=== PATIENT | female | born 1950 | race Caucasian/White ===

== ENCOUNTER 2023-11-07 11:56 | Outpatient (RCR) | payer MEDICARE, OTHER, SELFPAY | END 2023-11-07 23:59 | disposition home or self-care (01) | LOC: RPT 11:56 | PROVIDERS: ATTENDING PHYSICIAN Psychiatry & Neurology Neurology; FAMILY PHYSICIAN Physical Medicine & Rehabilitation | DX: R26.2 Difficulty in walking, not elsewhere classified (principal); Z73.6 Limitation of activities due to disability; M62.81 Muscle weakness (generalized); R20.2 Paresthesia of skin; R20.0 Anesthesia of skin; M54.9 Dorsalgia, unspecified; Z98.890 Other specified postprocedural states; Z47.89 Encounter for other orthopedic aftercare | CPT/HCPCS: 97112; 97116 ==

== ENCOUNTER 2023-11-30 11:01 | Outpatient (RCR) | payer MEDICARE, OTHER, SELFPAY | END 2023-11-30 23:59 | disposition home or self-care (01) | LOC: RPT 11:01 | PROVIDERS: ATTENDING PHYSICIAN Psychiatry & Neurology Neurology; FAMILY PHYSICIAN Physical Medicine & Rehabilitation | DX: R26.2 Difficulty in walking, not elsewhere classified (principal); Z73.6 Limitation of activities due to disability; M62.81 Muscle weakness (generalized); R20.2 Paresthesia of skin; Z98.890 Other specified postprocedural states; R20.0 Anesthesia of skin; M54.9 Dorsalgia, unspecified; Z47.89 Encounter for other orthopedic aftercare | CPT/HCPCS: 97010; 97112; 97116 ==

== ENCOUNTER 2023-12-13 12:39 | Outpatient (RCR) | payer MEDICARE, OTHER, SELFPAY | END 2023-12-13 23:59 | disposition home or self-care (01) | LOC: RPT 12:39 | PROVIDERS: ATTENDING PHYSICIAN Family Medicine | DX: I89.0 Lymphedema, not elsewhere classified (principal); Z73.6 Limitation of activities due to disability; R26.2 Difficulty in walking, not elsewhere classified | CPT/HCPCS: 97140; 97163 ==

== ENCOUNTER 2023-12-28 09:30 | Outpatient (RCR) | payer MEDICARE, OTHER, SELFPAY | END 2023-12-28 23:59 | disposition home or self-care (01) | LOC: RPT 09:30 | PROVIDERS: ATTENDING PHYSICIAN Psychiatry & Neurology Neurology; FAMILY PHYSICIAN Physical Medicine & Rehabilitation | DX: R26.2 Difficulty in walking, not elsewhere classified (principal); Z73.6 Limitation of activities due to disability; M62.81 Muscle weakness (generalized); R20.2 Paresthesia of skin; R20.0 Anesthesia of skin; M54.9 Dorsalgia, unspecified; Z98.890 Other specified postprocedural states | CPT/HCPCS: 97110; 97112; 97116 ==

== ENCOUNTER 2024-01-10 10:48 | Outpatient (RCR) | payer MEDICARE, OTHER, SELFPAY | END 2024-01-10 23:59 | disposition home or self-care (01) | LOC: RPT 10:48 | PROVIDERS: ATTENDING PHYSICIAN Family Medicine | DX: I89.0 Lymphedema, not elsewhere classified (principal); Z73.6 Limitation of activities due to disability; R26.2 Difficulty in walking, not elsewhere classified; Z98.890 Other specified postprocedural states | CPT/HCPCS: 97140 ==

== ENCOUNTER 2024-02-09 11:32 | Outpatient (RCR) | payer MEDICARE, OTHER, SELFPAY | END 2024-02-09 23:59 | disposition home or self-care (01) | LOC: RPT 11:32 | PROVIDERS: ATTENDING PHYSICIAN Family Medicine | DX: I89.0 Lymphedema, not elsewhere classified (principal); Z73.6 Limitation of activities due to disability; R26.2 Difficulty in walking, not elsewhere classified | CPT/HCPCS: 97140 ==

== ENCOUNTER 2024-03-12 10:54 | Outpatient (RCR) | payer MEDICARE, OTHER, SELFPAY | END 2024-03-12 23:59 | disposition home or self-care (01) | LOC: RPT 10:54 | PROVIDERS: ATTENDING PHYSICIAN Family Medicine | DX: I89.0 Lymphedema, not elsewhere classified (principal); Z73.6 Limitation of activities due to disability; R26.2 Difficulty in walking, not elsewhere classified | CPT/HCPCS: 97140 ==

== ENCOUNTER 2024-03-26 10:48 | Outpatient (RCR) | payer MEDICARE, OTHER, SELFPAY | END 2024-03-26 13:55 | disposition home or self-care (01) | LOC: RPT 10:48 | PROVIDERS: ATTENDING PHYSICIAN Family Medicine | DX: I89.0 Lymphedema, not elsewhere classified (principal); Z73.6 Limitation of activities due to disability | CPT/HCPCS: 97140; 97535 ==

== ENCOUNTER 2024-04-11 08:32 | Outpatient (RCR) | payer MEDICARE, OTHER, SELFPAY | END 2024-04-11 23:59 | disposition home or self-care (01) | LOC: RPT 08:32 | PROVIDERS: ATTENDING PHYSICIAN Psychiatry & Neurology Neurology; FAMILY PHYSICIAN Family Medicine | DX: R26.89 Other abnormalities of gait and mobility (principal); I77.0 Arteriovenous fistula, acquired; Z73.6 Limitation of activities due to disability | CPT/HCPCS: 97110; 97163 ==

== ENCOUNTER 2024-05-09 10:43 | Outpatient (RCR) | payer MEDICARE, OTHER, SELFPAY | END 2024-05-09 23:59 | disposition home or self-care (01) | LOC: RPT 10:43 | PROVIDERS: ATTENDING PHYSICIAN Psychiatry & Neurology Neurology; FAMILY PHYSICIAN Family Medicine | DX: I77.0 Arteriovenous fistula, acquired (principal); R26.89 Other abnormalities of gait and mobility; Z73.6 Limitation of activities due to disability | CPT/HCPCS: 97010; 97110; 97112; 97530 ==

== ENCOUNTER 2024-06-06 11:44 | Outpatient (RCR) | payer MEDICARE, OTHER, SELFPAY | END 2024-06-06 23:59 | disposition home or self-care (01) | LOC: ROT 11:44 | PROVIDERS: ATTENDING PHYSICIAN Psychiatry & Neurology Neurology; FAMILY PHYSICIAN Family Medicine | DX: R26.89 Other abnormalities of gait and mobility (principal); Z73.6 Limitation of activities due to disability; I77.0 Arteriovenous fistula, acquired; G56.01 Carpal tunnel syndrome, right upper limb | CPT/HCPCS: 97010; 97110; 97112; 97166; 97530; 97535 ==

== ENCOUNTER 2024-07-11 10:43 | Outpatient (RCR) | payer MEDICARE, OTHER, SELFPAY | END 2024-07-11 23:59 | disposition home or self-care (01) | LOC: ROT 10:43 | PROVIDERS: ATTENDING PHYSICIAN Psychiatry & Neurology Neurology; FAMILY PHYSICIAN Family Medicine | DX: R26.89 Other abnormalities of gait and mobility (principal); Z73.6 Limitation of activities due to disability; I77.0 Arteriovenous fistula, acquired; G56.01 Carpal tunnel syndrome, right upper limb | CPT/HCPCS: 97010; 97110; 97112; 97116; 97530 ==

== ENCOUNTER 2024-08-08 10:08 | Outpatient (RCR) | payer MEDICARE, OTHER, SELFPAY | END 2024-08-08 23:59 | disposition home or self-care (01) | LOC: ROT 10:08 | PROVIDERS: ATTENDING PHYSICIAN Psychiatry & Neurology Neurology; FAMILY PHYSICIAN Family Medicine | DX: R26.89 Other abnormalities of gait and mobility (principal); I77.0 Arteriovenous fistula, acquired; Z73.6 Limitation of activities due to disability; M62.81 Muscle weakness (generalized); G56.01 Carpal tunnel syndrome, right upper limb | CPT/HCPCS: 97010; 97112; 97530 ==

== ENCOUNTER 2024-09-11 13:37 | Outpatient (RCR) | payer MEDICARE, OTHER, SELFPAY | END 2024-09-11 23:59 | disposition home or self-care (01) | LOC: RPT 13:37 | PROVIDERS: ATTENDING PHYSICIAN Family Medicine | DX: I89.0 Lymphedema, not elsewhere classified (principal); Z73.6 Limitation of activities due to disability | CPT/HCPCS: 97140; 97163; 97535 ==

== ENCOUNTER 2024-09-27 09:36 | Outpatient (RCR) | payer MEDICARE, OTHER, SELFPAY | END 2024-09-27 23:59 | disposition home or self-care (01) | LOC: RPT 09:36 | PROVIDERS: ATTENDING PHYSICIAN Family Medicine | DX: I89.0 Lymphedema, not elsewhere classified (principal); Z73.6 Limitation of activities due to disability; R26.2 Difficulty in walking, not elsewhere classified | CPT/HCPCS: 97140; 97535 ==

== ENCOUNTER 2024-10-07 16:55 | Outpatient (RCR) | payer MEDICARE, OTHER, SELFPAY | END 2024-10-07 23:59 | disposition home or self-care (01) | LOC: RPT 16:55 | PROVIDERS: ATTENDING PHYSICIAN Urology; FAMILY PHYSICIAN Family Medicine | DX: N39.41 Urge incontinence (principal); R15.9 Full incontinence of feces; N31.9 Neuromuscular dysfunction of bladder, unspecified; R39.198 Other difficulties with micturition; Z73.6 Limitation of activities due to disability; M62.81 Muscle weakness (generalized); R27.8 Other lack of coordination; M62.89 Other specified disorders of muscle | CPT/HCPCS: 76770; 97140; 97163; 97530 ==

== ENCOUNTER 2024-10-30 06:16 | Outpatient (RCR) | payer MEDICARE, OTHER, SELFPAY | END 2024-10-30 23:59 | disposition home or self-care (01) | LOC: RPT 06:16 | PROVIDERS: ATTENDING PHYSICIAN Urology; FAMILY PHYSICIAN Family Medicine | DX: N39.41 Urge incontinence (principal); R15.9 Full incontinence of feces; N31.9 Neuromuscular dysfunction of bladder, unspecified; R39.198 Other difficulties with micturition; Z73.6 Limitation of activities due to disability; M62.81 Muscle weakness (generalized); R27.8 Other lack of coordination; M62.89 Other specified disorders of muscle | CPT/HCPCS: 97140; 97530 ==

== ENCOUNTER 2024-11-12 13:11 | Outpatient (RCR) | payer MEDICARE, OTHER, SELFPAY | END 2024-11-12 23:59 | disposition home or self-care (01) | LOC: RPT 13:11 | PROVIDERS: ATTENDING PHYSICIAN Family Medicine | DX: I89.0 Lymphedema, not elsewhere classified (principal); Z73.6 Limitation of activities due to disability; R26.2 Difficulty in walking, not elsewhere classified | CPT/HCPCS: 97140; 97535 ==

== ENCOUNTER 2024-11-15 08:25 | Outpatient (RCR) | payer MEDICARE, OTHER, SELFPAY | END 2024-11-15 11:30 | disposition home or self-care (01) | LOC: RPT 08:25 | PROVIDERS: ATTENDING PHYSICIAN Family Medicine | DX: I89.0 Lymphedema, not elsewhere classified (principal); Z73.6 Limitation of activities due to disability; R26.2 Difficulty in walking, not elsewhere classified | CPT/HCPCS: 97140; 97535 ==

== ENCOUNTER 2025-01-07 06:30 | Outpatient (RCR) | payer MEDICARE, OTHER, SELFPAY | END 2025-01-07 23:59 | disposition home or self-care (01) | LOC: RPT 06:30 | PROVIDERS: ATTENDING PHYSICIAN Family Medicine | DX: I89.0 Lymphedema, not elsewhere classified (principal); Z73.6 Limitation of activities due to disability; R26.2 Difficulty in walking, not elsewhere classified | CPT/HCPCS: 97140; 97163; 97530 ==

== ENCOUNTER 2025-02-05 09:16 | Outpatient (RCR) | payer MEDICARE, OTHER, SELFPAY | END 2025-02-05 23:59 | disposition home or self-care (01) | LOC: RPT 09:16 | PROVIDERS: ATTENDING PHYSICIAN Family Medicine | DX: I89.0 Lymphedema, not elsewhere classified (principal); Z73.6 Limitation of activities due to disability; R26.2 Difficulty in walking, not elsewhere classified; R26.89 Other abnormalities of gait and mobility | CPT/HCPCS: 97140; 97530 ==

== ENCOUNTER 2025-03-05 09:48 | Outpatient (RCR) | payer MEDICARE, OTHER, SELFPAY | END 2025-03-05 23:59 | disposition home or self-care (01) | LOC: RPT 09:48 | DX: N39.41 Urge incontinence (principal); R15.9 Full incontinence of feces; N31.9 Neuromuscular dysfunction of bladder, unspecified; R39.198 Other difficulties with micturition; Z73.6 Limitation of activities due to disability; M62.81 Muscle weakness (generalized); R27.8 Other lack of coordination; M62.89 Other specified disorders of muscle | CPT/HCPCS: 97163; 97530 ==

== ENCOUNTER 2025-03-12 06:19 | Outpatient (RCR) | payer MEDICARE, OTHER, SELFPAY | END 2025-03-12 23:59 | disposition home or self-care (01) | LOC: RPT 06:19 | PROVIDERS: ATTENDING PHYSICIAN Family Medicine | DX: I89.0 Lymphedema, not elsewhere classified (principal); Z73.6 Limitation of activities due to disability; R26.2 Difficulty in walking, not elsewhere classified; R26.89 Other abnormalities of gait and mobility | CPT/HCPCS: 97140; 97164; 97530 ==

== ENCOUNTER 2025-03-20 12:00 | Outpatient (RCR) | payer MEDICARE, OTHER, SELFPAY | END 2025-03-20 23:59 | disposition home or self-care (01) | LOC: RPT 12:00 | PROVIDERS: ATTENDING PHYSICIAN Family Medicine | DX: I89.0 Lymphedema, not elsewhere classified (principal); Z73.6 Limitation of activities due to disability; R26.2 Difficulty in walking, not elsewhere classified; R26.89 Other abnormalities of gait and mobility | CPT/HCPCS: 97140; 97530 ==

== ENCOUNTER → 2025-04-10 11:41 | Outpatient (REF) | payer MEDICARE, OTHER, SELFPAY | LOC: HWRAD 11:41 | PROVIDERS: ATTENDING PHYSICIAN Nurse Practitioner Family; FAMILY PHYSICIAN Family Medicine | DX: S80.11XA Contusion of right lower leg, initial encounter (principal); R10.31 Right lower quadrant pain | CPT/HCPCS: 73502; 73552; 73564 ==

== ENCOUNTER 2025-04-11 10:50 | Outpatient (RCR) | payer MEDICARE, OTHER, SELFPAY | END 2025-04-11 23:59 | disposition home or self-care (01) | LOC: RPT 10:50 | PROVIDERS: ATTENDING PHYSICIAN Urology; FAMILY PHYSICIAN Family Medicine | DX: N39.41 Urge incontinence (principal); R15.9 Full incontinence of feces; R39.198 Other difficulties with micturition; Z73.6 Limitation of activities due to disability; N31.9 Neuromuscular dysfunction of bladder, unspecified; M62.81 Muscle weakness (generalized); R27.8 Other lack of coordination; M62.89 Other specified disorders of muscle; N32.81 Overactive bladder | CPT/HCPCS: 97014; 97110; 97112; 97140; 97530 ==

== ENCOUNTER 2025-04-25 09:32 | Outpatient (RCR) | payer MEDICARE, OTHER, SELFPAY | END 2025-04-25 23:59 | disposition home or self-care (01) | LOC: RPT 09:32 | PROVIDERS: ATTENDING PHYSICIAN Urology; FAMILY PHYSICIAN Family Medicine | DX: N32.81 Overactive bladder (principal); R15.9 Full incontinence of feces; N39.41 Urge incontinence; M62.89 Other specified disorders of muscle; N31.9 Neuromuscular dysfunction of bladder, unspecified; Z73.6 Limitation of activities due to disability; R39.198 Other difficulties with micturition; M62.81 Muscle weakness (generalized); R27.8 Other lack of coordination | CPT/HCPCS: 97014; 97112; 97140; 97164; 97530 ==

== ENCOUNTER 2025-05-07 09:08 | Inpatient (IN) | payer MEDICARE, OTHER, SELFPAY ==
[2025-05-04 17:50] VITALS: BP 138/72
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
[2025-05-04] MEDS: ULTRAM 50 MG PO (21:35)
[2025-05-04 21:40] VITALS: BMI 41.1
[2025-05-04 21:43] VITALS: BP 137/58
[2025-05-04 21:50] LABS: % Basophils 0.6 % (0-2); % Eosinophils 2.3 % (0-6); % Immature Granulocytes 0.3 % (0-0.5); % Lymphocytes 21.7 % (20.5-51.1); % Monocytes 9.2 % (1.7-9.3); % Neutrophils 65.9 % (42.2-75.2); Absolute Eosinophils 0.2 10^3/uL (0-0.7); Absolute Lymphocytes 1.5 10^3/uL (1.2-3.4); Absolute Monocytes 0.6 10^3/uL (0.1-0.6); Absolute Neutrophils 4.5 10^3/uL (1.4-6.5); Hemoglobin 11.7 g/dL (12.0-16.0); Mean Corp Hgb Conc. 32.5 g/dL (33.0-37.0); Mean Corpuscular Hgb 29.5 pg (27.0-31.0); Mean Corpuscular Volume 90.7 fL (81.0-99.0); Nucleated Red Blood Cells % 0 %; Platelet Count 183 10^3/uL (130-400); Red Blood Cell Count 3.97 10^6/uL (4.20-5.40); White Blood Cell Count 6.8 10^3/uL (4.8-10.8)
[2025-05-04 22:10] LABS: ALT (SGPT) 14 U/L (0-35); AST (SGOT) 18 U/L (14-36); Albumin 3.6 g/dl (3.5-5.0); Alkaline Phosphatase 81 U/L (38-126); Blood Urea Nitrogen 24 mg/dl (7-17); Calcium 9.1 mg/dl (8.4-10.2); Carbon Dioxide 25 mmol/L (22-30); Chloride 110 mmol/L (98-107); Estimated Creatinine Clearance 85 ml/min; Glucose 92 mg/dl (70-99); Sodium 139 mmol/L (135-145); Total Bilirubin 0.5 mg/dl (0.2-1.3); Total Protein 6.4 g/dl (6.3-8.2); eGFR > 60.00
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
[2025-05-05 00:27] VITALS: BP 109/49
[2025-05-05] MEDS: ELIQUIS 5 MG PO ×3 (00:36→20:38)
[2025-05-05 01:58] VITALS: BMI 39.9
[2025-05-05 02:00] VITALS: BP 120/58; BMI 39.9
[2025-05-05] MEDS: TORADOL 10 MG IV ×3 (02:52→18:23)
[2025-05-05 07:04] VITALS: BP 118/64
[2025-05-05 08:00] LABS: Hematocrit 34.3 % (37.0-47.0); Hemoglobin 11.2 g/dL (12.0-16.0); Mean Corp Hgb Conc. 32.7 g/dL (33.0-37.0); Mean Corpuscular Hgb 29.7 pg (27.0-31.0); Platelet Count 186 10^3/uL (130-400); Red Blood Cell Count 3.77 10^6/uL (4.20-5.40); White Blood Cell Count 5.6 10^3/uL (4.8-10.8)
[2025-05-05] MEDS: PROTONIX 40 MG PO (08:44)
[2025-05-05] MEDS: FLOMAX 0.4 MG PO (08:44)
[2025-05-05] MEDS: COLACE 100 MG PO (08:44)
[2025-05-05] MEDS: CRESTOR 10 MG PO (08:44)
[2025-05-05] MEDS: DITROPAN 5 MG PO ×2 (08:44→20:39)
[2025-05-05] MEDS: LASIX 40 MG PO (08:44)
[2025-05-05 08:48] LABS: Blood Urea Nitrogen 21 mg/dl (7-17); Calcium 8.6 mg/dl (8.4-10.2); Carbon Dioxide 23 mmol/L (22-30); Chloride 110 mmol/L (98-107); Creatine Phosphokinase 85 U/L (30-135); Estimated Creatinine Clearance 97 ml/min; Glucose 90 mg/dl (70-99); Magnesium 2.2 mg/dl (1.6-2.3); Potassium 3.8 mmol/L (3.5-5.1); Sodium 140 mmol/L (135-145); eGFR > 60.00
[2025-05-05] MEDS: NON-FORMULARY ITEM 4.5 MG PO (12:29)
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
[2025-05-05 15:20] VITALS: BP 100/54
--- NOTE | 2025-05-05 16:56 | CM ---
door manager reviewed patient's chart and met with patient and patient lives with her spouse in a one story home, patient was independent with adl's and used a cane or walker with ambulation, plan is to home with spouse when stable.
PCP: Meghan Rodrigues
Pharmacy: [facility] in [place]
Plan; Home with spouse when stable.
[2025-05-05 23:23] VITALS: BP 123/61
[2025-05-06 07:40] VITALS: BP 113/58
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
[2025-05-06] MEDS: NON-FORMULARY ITEM 4.5 MG PO (08:08)
[2025-05-06] MEDS: CRESTOR 10 MG PO (08:09)
[2025-05-06] MEDS: LASIX 40 MG PO (08:09)
[2025-05-06] MEDS: PROTONIX 40 MG PO (08:09)
[2025-05-06] MEDS: ELIQUIS 5 MG PO ×2 (08:09→19:39)
[2025-05-06] MEDS: DITROPAN 5 MG PO ×2 (08:09→19:39)
[2025-05-06] MEDS: FLOMAX 0.4 MG PO (08:09)
[2025-05-06] MEDS: COLACE 100 MG PO (08:09)
[2025-05-06] MEDS: TYLENOL 650 MG PO (08:13)
--- NOTE | 2025-05-06 11:50 | CM ---
CM reviewed pt with Dr Vergara- possible dc today pending MRI
Bedside meeting with pt
Outpt therapy recommended and pt in agreement
She is already receiving outpt lymphedema and pelvic floor therapy at outpt
Outpt script placed on chart per pt request
She will call family for ride home
Discharge Disposition- home with outpt therapy, family transport
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
[2025-05-06] MEDS: TYLENOL 1000 MG PO (15:38)
[2025-05-06 15:47] VITALS: BP 93/48
[2025-05-06 16:06] LABS: Hepatitis C Antibody Negative (Negative)
[2025-05-06] MEDS: TORADOL 10 MG IV (21:21)
[2025-05-06 23:32] VITALS: BP 123/71
[2025-05-07] MEDS: TYLENOL 1000 MG PO ×2 (00:07→07:48)
[2025-05-07] MEDS: ELIQUIS 5 MG PO (07:47)
[2025-05-07] MEDS: CRESTOR 10 MG PO (07:47)
[2025-05-07] MEDS: COLACE 100 MG PO (07:48)
[2025-05-07] MEDS: NON-FORMULARY ITEM 1 MG PO (07:48)
[2025-05-07] MEDS: FLOMAX 0.4 MG PO (07:48)
[2025-05-07] MEDS: PROTONIX 40 MG PO (07:48)
[2025-05-07] MEDS: LASIX 40 MG PO (07:49)
[2025-05-07] MEDS: DITROPAN 5 MG PO (07:49)
[2025-05-07 07:55] VITALS: BP 120/79
--- NOTE | 2025-05-07 08:31 | W.PN.UPDATE ---
Update Note
Progress Note Update
Ms. Zhou is resting comfortably in bed this morning. She endorses increased tingling in her right leg, and believes this is due to being stuck in bed. She also endorses aching pain about her right hip.
MRI Right Hip 05/06/2025 IMPRESSION:
>There is complete disruption of the distal iliopsoas tendon near its insertion with an associated hematoma. There is associated edema within the visualized psoas and iliacus musculature and surrounding soft tissues of the proximal thigh.
>There is no evidence of acute fracture of the hip.
>Redemonstration of the prominent right inguinal lymph node measuring up to 1.3 cm.
MRI Lumbar Spine 05/06/2025IMPRESSION:
Multilevel degenerative changes of the lumbar spine with grade 1 anterolisthesis of L4 on L5 and L5 on S1. There is multifocal spinal canal stenosis and neuroforaminal narrowing which appears overall slightly progressed from prior and is most
pronounced at L4-L5 where there is resultant severe canal stenosis and mild/moderate bilateral neuroforaminal narrowing.
Right iliopsoas tendon tear w/ hematoma
--Rhoda's MRIs were reviewed with her today which reveals a complete tear of her distal iliopsoas tendon with an associated hematoma. Thankfully, this can be managed without surgery. She reports she has therapy set up as an outpatient already,
and she may continue this as scheduled. She may be weight bearing as tolerated with a walker. I recommended heat/ice to the area. Continue pain control as needed. We would be happy to see her for continued management on an outpatient basis.
--Additionally, her Lumbar MRI reveals degenerative changes with some spinal canal and neural foraminal narrowing. I would recommend outpatient follow up with our spine team. She verbalized understanding.
[2025-05-07 11:00] VITALS: BP 120/80
--- NOTE | 2025-05-07 11:08 | CM ---
Chart reviewed and patient has switched to inpatient, IMM reviewed signed and placed on chart, patient is for discharge to home today, with outpatient therapies, patient has a prescription for outpatient PT/OT.
Plan; Home today, patient's family to transport.
--- NOTE | 2025-05-07 13:43 | W.PN.HOSP.TC ---
Today's Communication/Plan
-
d/c home
Assessment / Plan
Assessment / Plan
CT abd/pelvis
There is asymmetric mild enlargement with stranding along the distal right iliopsoas which likely represents bursitis and likely an element of myositis. There are mildly prominent right inguinal lymph nodes measuring up to 1.3 cm which may be
reactive.
Moderate colonic stool burden.
MRI R hip
There is complete disruption of the distal iliopsoas tendon near its insertion with an associated hematoma. There is associated edema within the visualized psoas and iliacus musculature and surrounding soft tissues of the proximal thigh.
There is no evidence of acute fracture of the hip.
Redemonstration of the prominent right inguinal lymph node measuring up to 1.3 cm.
MRI L spine
Multilevel degenerative changes of the lumbar spine with grade 1 anterolisthesis of L4 on L5 and L5 on S1. There is multifocal spinal canal stenosis and neuroforaminal narrowing which appears overall slightly progressed from prior and is most
pronounced at L4-L5 where there is resultant severe canal stenosis and mild/moderate bilateral neuroforaminal narrowing.

1. Distal iliopsoas tendon rupture
Juxtaposition of hematoma
Ambulatory dysfunction
Mechanical fall
- Patient is status post mechanical fall on March 30 when patient fell out of scooter
-An outpatient MRI hip was ordered in light of persistent pain, which was pending
-Patient presented for continual pain and difficulty getting around
-CT pelvis rule out any occult fracture, did show some bursitis and element of myositis
- MRI right hip showing complete tear of distal iliopsoas tendon with associated hematoma
- Orthopedic surgery evaluated no need for any surgery
- Patient to continue outpatient physical therapy
- As patient is on naltrexone cannot provide narcotics, I have [place] text Dr. Samaniego/primary pain specialist to address pain problems.
2. Chronic pain and narcotic dependence
-Patient follows up with pain specialist, patient to provide home dose of naltrexone which can be continued here
3. Morbid obesity
Chronic lymphedema
Chronic right lower extremity wound
-Patient has component of venous stasis/chronic lymphedema
-LE wound on right knee, which is healing appropriately with wound care
- Patient on oral Lasix 40 mg daily, continue
4. Urinary incontinence
History of constipation
-Patient in pelvic floor exercise/rehab to help with incontinence issues
-Maintain patient on home dose of Metamucil/Colace while in hospital
Essential hypertension
Hyperlipidemia
History of atrial fibrillation on Eliquis
History of spinal epidural AV fistula
History of knee replacement
History of right ankle surgery
History of C. difficile infection
History of incarcerated hernia and hernia repair
History of small bowel obstruction and resection
Full code
Eliquis
More than 30 minutes spent in discharge including
Final examination of the patient
Summarizing hospital stay
Instructions for continuing care to all relevant caregivers
Preparation of discharge records, prescriptions, and referral forms
Total time spent (in minutes): 39 mins
Anticipated Discharge: Today
Subjective/Interval History
-
Date of Service: May 07, 2025
Continues to have some pain although able to get around with walker
No other reported problems
Objective Data
-
Vital Signs:
Vital Signs
Temp Pulse Resp BP Pulse Ox
97.8 F 81 16 120/80 95
05/07/25 11:00 05/07/25 11:00 05/07/25 11:00 05/07/25 11:00 05/07/25 11:00
I&O
05/06/25 05/07/25 05/08/25
06:59 06:59 06:59
Intake Total 1360 / 1360 1880 / 1880 480 / 480
Balance 1360 / 1360 1880 / 188 480 / 480
Review of Systems
-
Respiratory: Reports No Symptoms
Cardiac: Reports No Symptoms
Abdomen/GI: Reports No Symptoms
Physical Exam
-
General: Appears Chronically Ill
HEENT: Negative Oxygen
Respiratory: Clear to Auscultation
Cardiac: Regular Rhythm and S1/S2; Negative Murmur or Rub
Musculoskeletal: Edema, Right Lower Extrem and Edema, Left Lower Extrem
Neuro: Awake, Alert, Oriented, No Motor Deficits and Nonfocal/Grossly Intact
Psych: Calm
--- NOTE | 2025-05-07 13:45 | W.DCSUMMARY ---
Discharge Summary
Discharge Data
Date of Admission: 05/04/25
Date of Discharge: 05/07/25
-
Pending Results: No
Hospital Course
Discharging Physician : Dr Kristian Vergara
Disposition : Home with outpatient PT
Primary care physician : Dr Meghan Rodrigues
Principal Discharge diagnosis :
Distal iliopsoas tendon rupture, right side
Juxtaposition hematoma
Ambulatory dysfunction
Chronic Discharge diagnosis :
History of chronic pain and narcotic dependence
Morbid obesity
Chronic lymphedema
History of urinary incontinence
History of constipation
Essential hypertension
Hyperlipidemia
History of atrial fibrillation on Eliquis
History of spinal epidural arteriovenous fistula
Knee replacement
History of C. difficile infection
History of incarcerated hernia and hernia repair
History of small bowel obstruction and resection
Hospital Course :
Patient is a 75-year-old female came to ER for having persistent right-sided hip pain. Apparently patient had a fall a few weeks back and had workup that time not showing any fractures. Patient continued to have some worsening pain and ambulatory
dysfunction and came to ER for further evaluation. CT pelvis done in ER ruled out any occult fracture although showed some bursitis and element of myositis. There was concern of possible some ligamental injury as well. Orthopedic surgery was
involved in care and patient had a follow-up MRI right hip which showed a complete tear of distal iliopsoas tendon with associated hematoma. Orthopedic surgery recommended nonsurgical management with patient to continue on outpatient physical
therapy. Patient on naltrexone prescribed by pain specialist and thus cannot be provided narcotics at discharge, I have recommended patient to discuss the issue with primary pain specialist. Patient was evaluated by physical therapy and was
appropriate for home level discharge.
Important imaging findings :
None
Procedure findings :
None
Discharge Plan
-
Patient Disposition: Home (Routine Discharge)
Discharge Diagnosis/Procedures: Right hip iliopsoas tendon rupture, hematoma
Condition: Fair
Diet: Regular
Activity: As tolerated and With Walker
Driving Restrictions: No driving
Bathing Restrictions: OK to Shower
Referrals:
Meghan Rodrigues MD [Family Provider, Family Practice] - in one week
Elias Chowdhury MD [Active, Orthopedics] - in one to two weeks
Prescriptions:
New
acetaminophen [Tylenol Extra Strength] 500 mg Tablet
1,000 mg PO Q8H Qty: 90 0RF
Continued
furosemide 40 mg Tablet
40 mg PO DAILY
calcium 600 mg Capsule
600 mg PO DAILY
oxybutynin chloride 10 mg Tablet Extended Release 24hr
10 mg PO DAILY
docusate sodium 50 mg Capsule
50 mg PO DAILY
tamsulosin 0.4 mg Capsule
0.4 mg PO DAILY
estradiol 0.01 % (0.1 mg/gram) Cream
1 g VAGINAL QWEEK
ergocalciferol (vitamin D2) 1,000 unit Capsule
2,000 unit PO DAILY
rosuvastatin 10 mg Tablet
10 mg PO DAILY
omeprazole 20 mg Tablet,Delayed Release (Dr/Ec)
20 mg PO DAILY
naltrexone 4.5 mg Capsule
4.5 mg PO DAILY
Eliquis 5 mg Tablet
5 mg PO BID
Discharge Orders:
Discharge Patient (As Directed); Ordered 05/07/25
Ordered By: Kristian Vergara
Discharge Date and Time
Discharge Date/Time: 05/07/25 13:36
Print Language: SERBIAN
== END 2025-05-07 13:36 | disposition home or self-care (01) | DRG 914 ==
LOC: 4 WEST ACU 09:08
PROVIDERS: Nurse Practitioner; ADMITTING PHYSICIAN Internal Medicine; ATTENDING PHYSICIAN Hospitalist; CONSULT PHYSICIAN Specialist; EMERGENCY PHYSICIAN Emergency Medicine; FAMILY PHYSICIAN Family Medicine
DX: S76.091A Other specified injury of muscle, fascia and tendon of right hip, initial encounter (principal); F11.20 Opioid dependence, uncomplicated; M70.71 Other bursitis of hip, right hip; V00.141A Fall from scooter (nonmotorized), initial encounter; M48.061 Spinal stenosis, lumbar region without neurogenic claudication; G89.29 Other chronic pain; E66.01 Morbid (severe) obesity due to excess calories; R32 Unspecified urinary incontinence; K59.00 Constipation, unspecified; I10 Essential (primary) hypertension; E78.00 Pure hypercholesterolemia, unspecified; I48.91 Unspecified atrial fibrillation; Z96.651 Presence of right artificial knee joint; M60.9 Myositis, unspecified; Z68.39 Body mass index [BMI] 39.0-39.9, adult; Z79.01 Long term (current) use of anticoagulants
CPT/HCPCS: 72148; 72192; 73721; 80048; 80053; 82550; 83735; 85025; 85027; 86803; 93971; 97140; 97161; 97164; 99285

== ENCOUNTER 2025-05-09 10:10 | Outpatient (RCR) | payer MEDICARE, OTHER, SELFPAY | END 2025-05-09 23:59 | disposition home or self-care (01) | LOC: RPT 10:10 | PROVIDERS: ATTENDING PHYSICIAN Family Medicine | DX: I89.0 Lymphedema, not elsewhere classified (principal); Z73.6 Limitation of activities due to disability; R26.2 Difficulty in walking, not elsewhere classified; R26.89 Other abnormalities of gait and mobility | CPT/HCPCS: 97140; 97164; 97530 ==

== ENCOUNTER 2025-06-05 08:18 | Outpatient (RCR) | payer MEDICARE, OTHER, SELFPAY | END 2025-06-06 23:59 | disposition home or self-care (01) | LOC: RPT 08:18 | PROVIDERS: ATTENDING PHYSICIAN Family Medicine | DX: M70.72 Other bursitis of hip, left hip (principal); M25.552 Pain in left hip; M25.551 Pain in right hip; R26.89 Other abnormalities of gait and mobility; Z73.6 Limitation of activities due to disability; R26.2 Difficulty in walking, not elsewhere classified; M62.81 Muscle weakness (generalized) | CPT/HCPCS: 97110; 97163 ==

== ENCOUNTER 2025-06-06 11:06 | Outpatient (RCR) | payer MEDICARE, OTHER, SELFPAY | END 2025-06-06 23:59 | disposition home or self-care (01) | LOC: RPT 11:06 | PROVIDERS: ATTENDING PHYSICIAN Urology; FAMILY PHYSICIAN Family Medicine | DX: N32.81 Overactive bladder (principal); R15.9 Full incontinence of feces; N39.41 Urge incontinence; M62.89 Other specified disorders of muscle; N31.9 Neuromuscular dysfunction of bladder, unspecified; Z73.6 Limitation of activities due to disability; R39.198 Other difficulties with micturition; M62.81 Muscle weakness (generalized); R27.8 Other lack of coordination | CPT/HCPCS: 97014; 97112; 97140; 97530 ==

== ENCOUNTER 2025-06-10 10:04 | Outpatient (RCR) | payer MEDICARE, OTHER, SELFPAY | END 2025-06-10 23:59 | disposition home or self-care (01) | LOC: RPT 10:04 | PROVIDERS: ATTENDING PHYSICIAN Family Medicine | DX: I89.0 Lymphedema, not elsewhere classified (principal); Z73.6 Limitation of activities due to disability; R26.2 Difficulty in walking, not elsewhere classified; R26.89 Other abnormalities of gait and mobility | CPT/HCPCS: 97140; 97530 ==

== ENCOUNTER 2025-06-18 13:19 | Outpatient (RCR) | payer MEDICARE, OTHER, SELFPAY | END 2025-06-24 23:59 | disposition home or self-care (01) | LOC: RPT 13:19 | PROVIDERS: ATTENDING PHYSICIAN Family Medicine | DX: I89.0 Lymphedema, not elsewhere classified (principal); Z73.6 Limitation of activities due to disability; R26.2 Difficulty in walking, not elsewhere classified; R26.89 Other abnormalities of gait and mobility | CPT/HCPCS: 97140; 97530 ==

== ENCOUNTER 2025-06-24 08:00 | Outpatient (RCR) | payer MEDICARE, OTHER, SELFPAY | END 2025-06-24 23:59 | disposition home or self-care (01) | LOC: RPT 08:00 | PROVIDERS: ATTENDING PHYSICIAN Family Medicine | DX: M70.72 Other bursitis of hip, left hip (principal); M25.552 Pain in left hip; M25.551 Pain in right hip; R26.89 Other abnormalities of gait and mobility; Z73.6 Limitation of activities due to disability; R26.2 Difficulty in walking, not elsewhere classified; M62.81 Muscle weakness (generalized) | CPT/HCPCS: 97010; 97110; 97112; 97116; 97530 ==

== ENCOUNTER 2025-07-08 12:25 | Outpatient (RCR) | payer MEDICARE, OTHER, SELFPAY | END 2025-07-08 23:59 | disposition home or self-care (01) | LOC: RPT 12:25 | PROVIDERS: ATTENDING PHYSICIAN Urology; FAMILY PHYSICIAN Family Medicine | DX: N32.81 Overactive bladder (principal); R15.9 Full incontinence of feces; N39.41 Urge incontinence; M62.89 Other specified disorders of muscle; N31.9 Neuromuscular dysfunction of bladder, unspecified; Z73.6 Limitation of activities due to disability; R39.198 Other difficulties with micturition; M62.81 Muscle weakness (generalized); R27.8 Other lack of coordination | CPT/HCPCS: 97014; 97112; 97140; 97530 ==

== ENCOUNTER 2025-08-01 11:54 | Outpatient (RCR) | payer MEDICARE, OTHER, SELFPAY | END 2025-08-01 23:59 | disposition home or self-care (01) | LOC: RPT 11:54 | PROVIDERS: ATTENDING PHYSICIAN Family Medicine | DX: I89.0 Lymphedema, not elsewhere classified (principal); R26.2 Difficulty in walking, not elsewhere classified; R26.89 Other abnormalities of gait and mobility; Z73.6 Limitation of activities due to disability | CPT/HCPCS: 97140 ==

== ENCOUNTER 2025-08-05 10:13 | Outpatient (RCR) | payer MEDICARE, OTHER, SELFPAY | END 2025-08-05 23:59 | disposition home or self-care (01) | LOC: RPT 10:13 | PROVIDERS: ATTENDING PHYSICIAN Family Medicine | DX: M70.72 Other bursitis of hip, left hip (principal); M25.552 Pain in left hip; M25.551 Pain in right hip; R26.89 Other abnormalities of gait and mobility; Z73.6 Limitation of activities due to disability; R26.2 Difficulty in walking, not elsewhere classified; M62.81 Muscle weakness (generalized) | CPT/HCPCS: 97010; 97110; 97116; 97140; 97530 ==

== ENCOUNTER 2025-08-12 09:43 | Outpatient (RCR) | payer MEDICARE, OTHER, SELFPAY | END 2025-08-12 23:59 | disposition home or self-care (01) | LOC: RPT 09:43 | PROVIDERS: ATTENDING PHYSICIAN Urology; FAMILY PHYSICIAN Family Medicine | DX: N32.81 Overactive bladder (principal); R15.9 Full incontinence of feces; N39.41 Urge incontinence; M62.89 Other specified disorders of muscle; N31.9 Neuromuscular dysfunction of bladder, unspecified; Z73.6 Limitation of activities due to disability; R39.198 Other difficulties with micturition; M62.81 Muscle weakness (generalized); R27.8 Other lack of coordination | CPT/HCPCS: 97014; 97112; 97140; 97530 ==

== ENCOUNTER 2025-08-15 10:28 | Outpatient (RCR) | payer MEDICARE, OTHER, SELFPAY | END 2025-08-15 23:59 | disposition home or self-care (01) | LOC: RPT 10:28 | PROVIDERS: ATTENDING PHYSICIAN Family Medicine | DX: I89.0 Lymphedema, not elsewhere classified (principal); Z73.6 Limitation of activities due to disability; R26.2 Difficulty in walking, not elsewhere classified; R26.89 Other abnormalities of gait and mobility | CPT/HCPCS: 97140; 97530 ==

== ENCOUNTER 2025-09-11 10:12 | Outpatient (RCR) | payer MEDICARE, OTHER, SELFPAY | END 2025-09-11 23:59 | disposition home or self-care (01) | LOC: RPT 10:12 | PROVIDERS: ATTENDING PHYSICIAN Family Medicine | DX: M70.72 Other bursitis of hip, left hip (principal); M25.552 Pain in left hip; M25.551 Pain in right hip; R26.89 Other abnormalities of gait and mobility; Z73.6 Limitation of activities due to disability; R26.2 Difficulty in walking, not elsewhere classified; M62.81 Muscle weakness (generalized) | CPT/HCPCS: 97010; 97110; 97112; 97116 ==

== ENCOUNTER 2025-09-12 08:27 | Outpatient (RCR) | payer MEDICARE, OTHER, SELFPAY | END 2025-09-12 23:59 | disposition home or self-care (01) | LOC: RPT 08:27 | PROVIDERS: ATTENDING PHYSICIAN Urology; FAMILY PHYSICIAN Family Medicine | DX: N32.81 Overactive bladder (principal); R15.9 Full incontinence of feces; N39.41 Urge incontinence; M62.89 Other specified disorders of muscle; N31.9 Neuromuscular dysfunction of bladder, unspecified; Z73.6 Limitation of activities due to disability; R39.198 Other difficulties with micturition; M62.81 Muscle weakness (generalized); R27.8 Other lack of coordination | CPT/HCPCS: 97014; 97112; 97140; 97530 ==

== ENCOUNTER 2025-09-23 07:33 | Outpatient (RCR) | payer MEDICARE, OTHER, SELFPAY | END 2025-09-23 23:59 | disposition home or self-care (01) | LOC: RPT 07:33 | PROVIDERS: ATTENDING PHYSICIAN Family Medicine | DX: I89.0 Lymphedema, not elsewhere classified (principal); Z73.6 Limitation of activities due to disability; R26.2 Difficulty in walking, not elsewhere classified; R26.89 Other abnormalities of gait and mobility | CPT/HCPCS: 97140; 97530 ==

== ENCOUNTER 2025-10-03 08:01 | Outpatient (RCR) | payer MEDICARE, OTHER, SELFPAY | END 2025-10-03 23:59 | disposition home or self-care (01) | LOC: RPT 08:01 | PROVIDERS: ATTENDING PHYSICIAN Urology; FAMILY PHYSICIAN Family Medicine | DX: N32.81 Overactive bladder (principal); R15.9 Full incontinence of feces; N39.41 Urge incontinence; M62.89 Other specified disorders of muscle; N31.9 Neuromuscular dysfunction of bladder, unspecified; Z73.6 Limitation of activities due to disability; R39.198 Other difficulties with micturition; M62.81 Muscle weakness (generalized); R27.8 Other lack of coordination | CPT/HCPCS: 97014; 97112; 97140; 97530 ==

== ENCOUNTER 2025-10-08 07:11 | Outpatient (RCR) | payer MEDICARE, OTHER, SELFPAY | END 2025-10-08 23:59 | disposition home or self-care (01) | LOC: RPT 07:11 | PROVIDERS: ATTENDING PHYSICIAN Family Medicine | DX: M70.72 Other bursitis of hip, left hip (principal); M25.552 Pain in left hip; M25.551 Pain in right hip; R26.89 Other abnormalities of gait and mobility; Z73.6 Limitation of activities due to disability; R26.2 Difficulty in walking, not elsewhere classified; M62.81 Muscle weakness (generalized) | CPT/HCPCS: 97010; 97110; 97112; 97116; 97530 ==

== ENCOUNTER 2025-10-14 08:21 | Outpatient (RCR) | payer MEDICARE, OTHER, SELFPAY | END 2025-10-14 23:59 | disposition home or self-care (01) | LOC: RPT 08:21 | PROVIDERS: ATTENDING PHYSICIAN Family Medicine | DX: I89.0 Lymphedema, not elsewhere classified (principal); Z73.6 Limitation of activities due to disability; R26.2 Difficulty in walking, not elsewhere classified; R26.89 Other abnormalities of gait and mobility | CPT/HCPCS: 97140 ==

== ENCOUNTER 2025-11-07 10:45 | Outpatient (RCR) | payer MEDICARE, OTHER, SELFPAY | END 2025-11-07 23:59 | disposition home or self-care (01) | LOC: RPT 10:45 | PROVIDERS: ATTENDING PHYSICIAN Urology; FAMILY PHYSICIAN Family Medicine | DX: N32.81 Overactive bladder (principal); R15.9 Full incontinence of feces; N39.41 Urge incontinence; M62.89 Other specified disorders of muscle; N31.9 Neuromuscular dysfunction of bladder, unspecified; Z73.6 Limitation of activities due to disability; R39.198 Other difficulties with micturition; M62.81 Muscle weakness (generalized); R27.8 Other lack of coordination | CPT/HCPCS: 97112; 97140; 97530 ==

== ENCOUNTER 2025-11-12 09:47 | Outpatient (RCR) | payer MEDICARE, OTHER, SELFPAY | END 2025-11-12 23:59 | disposition home or self-care (01) | LOC: RPT 09:47 | PROVIDERS: ATTENDING PHYSICIAN Family Medicine | DX: M70.72 Other bursitis of hip, left hip (principal); M25.552 Pain in left hip; M25.551 Pain in right hip; R26.89 Other abnormalities of gait and mobility; Z73.6 Limitation of activities due to disability; R26.2 Difficulty in walking, not elsewhere classified; M62.81 Muscle weakness (generalized) | CPT/HCPCS: 97010; 97110; 97112; 97116; 97530 ==